=== PATIENT | female | born 1965 | race African-American/Black ===

== ENCOUNTER 2024-08-07 08:20 | Emergency (ER) | payer MEDICARE, OTHER ==
[2024-08-07 08:30] VITALS: BP 103/65; PULSE 65; RESP 18; TEMP 97.7; BMI 25.6
[2024-08-07] MEDS ORDERED: ACETAMINOPHEN 500 MG TABLET (FP) ONE (08:53)
[2024-08-07] MEDS: ACETAMINOPHEN 500 MG TABLET (FP) PO ONE (08:58)
== END 2024-08-07 11:49 | disposition home or self-care (01) ==
LOC: JER 08:20
DX: S06.0X0A Concussion without loss of consciousness, initial encounter (principal); R42 Dizziness and giddiness; Y04.8XXA Assault by other bodily force, initial encounter
CPT/HCPCS: 70450-TC; 99284-25